=== PATIENT | male | born 1945 | race Two or more races ===

== ENCOUNTER → 2023-11-05 | Outpatient (CLI) | payer MEDICARE ==
[~2023-11-05] VITALS: Ht 180.3 cm; Wt 97.5 kg
[2023-11-05] MEDS: REGADENOSON 0.4 MG/5 ML SYRG IV ONE ×2 (09:37→09:40)
== END | disposition home or self-care (01) ==
LOC: XY 08:11
PROVIDERS: ATTEND Specialist
DX: I45.4 Nonspecific intraventricular block (principal); R07.9 Chest pain, unspecified; J44.9 Chronic obstructive pulmonary disease, unspecified; I10 Essential (primary) hypertension; E11.9 Type 2 diabetes mellitus without complications; Z88.8 Allergy status to other drugs, medicaments and biological substances
CPT/HCPCS: 78452; 93017; A9500; J2785